=== PATIENT | female | born 1970 | race Caucasian/White ===

== ENCOUNTER 2017-12-15 09:21 | Outpatient (CLI) | payer OTHER ==
[2017-12-15 09:51] LABS: BASOPHILS % 0.9 (0.0-1.5); EOSINOPHILS % 8.6 % (0.0-6.8); MEAN CORPUSCULAR HEMOGLOBIN 29.1 pg (28.0-34.0); MEAN CORPUSCULAR VOLUME 92.3 fl (80.0-100.0); MONOCYTES % 6.3 % (0.0-11.0); NEUTROPHILS # 2.8 # k/uL (1.4-7.7)
== END 2017-12-15 09:22 ==
LOC: RT 09:21
PROVIDERS: ATTEND Family Medicine
DX: R00.2 Palpitations (principal); R11.0 Nausea
CPT/HCPCS: 80048; 84443; 85025; 93225